=== PATIENT | male | born 1995 | race African-American/Black ===

== ENCOUNTER 2023-01-09 05:40 | Emergency (ER) | payer MEDICAID ==
[~2023-01-09] VITALS: Ht 180.3 cm; Wt 111.0 kg
[2023-01-09 06:03] VITALS: TEMP 102.1; O2SAT 99
[2023-01-09] MEDS ORDERED: IBUPROFEN 600MG TABLET PO ONE (06:45)
[2023-01-09] MEDS ORDERED: ONDA4TAB11 PO (09:32)
[2023-01-09 09:42] VITALS: BP 130/77; PULSE 99; RESP 18
== END 2023-01-09 09:45 | disposition home or self-care (01) ==
LOC: ER 06:12 → EDBD 06:12 → ER 09:45
DX: B34.9 Viral infection, unspecified (principal); Z20.822 Contact with and (suspected) exposure to COVID-19
CPT/HCPCS: 99283; 87426; 87804 ×2; C9803

== ENCOUNTER 2023-01-26 21:47 | Emergency (ER) | payer MEDICAID ==
[~2023-01-26] VITALS: Ht 180.3 cm; Wt 105.2 kg
[~2023-01-26 21:47] MED LIST: ONDA4TAB11 PO
[2023-01-26 21:53] VITALS: BP 147/83; PULSE 78; RESP 16; TEMP 98.2; O2SAT 100
[2023-01-27] MEDS ORDERED: TC1C15 TP (01:57)
[2023-01-27] MEDS ORDERED: DEXAMETHASONE 4MG/ML 1ML VIAL IM ONE (02:00)
== END 2023-01-27 02:34 | disposition home or self-care (01) ==
LOC: ER 21:47
DX: L30.9 Dermatitis, unspecified (principal)
CPT/HCPCS: 99283; 96372; J1100